=== PATIENT | male | born 1995 | race Caucasian/White ===

== ENCOUNTER 2018-05-19 01:42 | Emergency (ER) | payer MEDICAID ==
--- NOTE | 2018-05-19 01:17 | ERPHSYRPT ---
- History of Present Illness Time Seen by Provider: 05/19/18 01:10 EST Source: patient Exam Limitations: clinical condition Patient Subjective Stated Complaint: pt is alert and oriented. pt is ambulatory with a steady gait. pt states that he jumped up and grabbed onto an edge of a wall and felt a pop on May 16. pt states that it did not immediately hurt but began hurting about an hour later. pt states he has limited ROM. he is able to lift and move his arm. pedal pulses present. Triage Nursing Assessment: see above Physician History: PATIENT STATES 2 DAYS AGO HE JUMPED ONTO WALL WITH BOTH ARMS AND FELT A POPPING SENSATION AND SEVERE PAIN INTO HIS LEFT SHOULDER. HAS PERSISTENT PAIN WITH LIMITED RANGE OF MOTION OF LEFT SHOULDER. DENIES DEFORMITY, SWELLING, NUMBNESS , TINGLING IN ARM. Occurred: days ago (2) Method of Injury: twisted Quality: constant Severity of Pain-Max: moderate Severity of Pain-Current: moderate Extremities Pain Location: shoulder: left Modifying Factors: Improves With: movement Associated Symptoms: none (LIMITED RANGE OF MOTION OF ARM) Allergies/Adverse Reactions: No Known Drug Allergies Allergy (Unverified 05/19/18 01:00 EST) Hx Tetanus, Diphtheria Vaccination/Date Given: No Immunizations Up to Date: Yes - Review of Systems Constitutional: No Fever, No Chills Eyes: No Symptoms Ears, Nose, & Throat: No Symptoms Respiratory: No Cough, No Dyspnea Cardiac: No Chest Pain, No Edema, No Syncope Abdominal/Gastrointestinal: No Abdominal Pain, No Nausea, No Vomiting, No Diarrhea Genitourinary Symptoms: No Dysuria Musculoskeletal: Injury, Joint Pain, No Back Pain, No Neck Pain Skin: No Rash Neurological: No Dizziness, No Focal Weakness, No Sensory Changes Psychological: No Symptoms Endocrine: No Symptoms All Other Systems: Reviewed and Negative - Past Medical History Pertinent Past Medical History: Yes Neurological History: No Pertinent History ENT History: No Pertinent History Cardiac History: No Pertinent History Respiratory History: No Pertinent History Endocrine Medical History: No Pertinent History Musculoskeletal History: Fractures GI Medical History: No Pertinent History History: No Pertinent History Psycho-Social History: No Pertinent History Male Reproductive Disorders: No Pertinent History Other Medical History: Right wrist - Past Surgical History Past Surgical History: No - Social History Smoking Status: Never smoker Drug Use: none - Nursing Vital Signs Nursing Vital Signs: Initial Vital Signs Pulse Rate 74 05/19/18 01:51 EDT Respiratory Rate 18 05/19/18 01:51 EDT Blood Pressure 109/62 05/19/18 01:51 EDT O2 Sat by Pulse Oximetry 99 05/19/18 01:51 EDT Pain Scale Pain Intensity 7 - Physical Exam General Appearance: no apparent distress Shoulder Exam: normal inspection, no evidence of injury (LEFT RADIAL PULSE 2 +) , limited ROM, soft tissue tenderness (TENDERNESS LEFT SHOULDER ANTERIOR LATERAL ASPECT, NO SWELLING OR ECCHYMOSIS, ABDUCTION AND SHOULDER EXTENSION LIMITED TO 75 DEGREES) DTR - Upper Extremity Exam: bicep (R): 2+, bicep (L): 2+, tricep (R): 2+, tricep (L): 2+ SpO2: 99 Oxygen Delivery: Room Air - Radiology Exams Left Shoulder X-ray Interpretation: Interpreted by me, Negative, No Fracture (NO DISLOCATION) Ordered Tests: Active Orders 24 hr Category Date Time Status Sling Application STAT Care 05/19/18 01:08 Active SHOULDER Stat Exams 05/19/18 01:09 Ordered Medication Summary Discontinued Medications Generic Name Dose Route Start Last Admin Trade Name Freq PRN Reason Stop Dose Admin Ibuprofen 600 mg 05/19/18 01:08 EST Motrin 600 Mg PO 05/19/18 01:09 EST STAT ONE - Progress Progress: pain not gone completely Progress Note: 05/19/18 01:29 EST ADMINISTERED MOTRIN 600MG ORALLY, APPLICATION LEFT ARM SLING Counseled pt/family regarding: need for follow-up, rad results - Departure Time of Disposition: 13:35 Departure Disposition: Home Clinical Impression: LEFT ROTATOR CUFF TEAR Condition: Stable Critical Care Time: No Additional Instructions: WEAR ARM SLING FOR COMFORT. TORADOL 10MG EVERY 6 HOURS FOR PAIN. PERCOGESIC EVERY 4 HOURS NEEDED FOR BREAK THROUGH PAIN. CONSULT YOUR PRIMARY CARE PROVIDER FOR FOLLOWUP, PHYSICAL THERAPY AND REFERRAL TO ORTHOPEDIC SURGEON. Prescriptions: Acetaminophen/Diphenhydramine [Percogesic Extra Str Caplet] 1 each PO Q4HPRN PRN #20 tablet PRN Reason: Pain Ketorolac Tromethamine [Toradol] 10 mg PO Q6H PRN PRN #20 tablet PRN Reason: Pain
[~2018-05-19 01:42] MED LIST: MOTRIN 600 MG ONE; MOTRIN 600 MG PO ONE
[2018-05-19 01:58] VITALS: PULSE 74; O2SAT 99
[2018-05-19 04:03] VITALS: BP 110/80
--- NOTE | 2018-05-19 07:07 | XRAY ---
Indication: Pain following injury. Comparison: None 3 views of the left shoulder demonstrates mild thoracic scoliosis. No other bony, articular, or soft tissue abnormalities.
== END 2018-05-19 02:45 | disposition home or self-care (01) ==
LOC: EDBD → ED 01:42 → MERGE 01:42 → ED 02:45
DX: M75.102 Unspecified rotator cuff tear or rupture of left shoulder, not specified as traumatic (principal); X50.0XXA Overexertion from strenuous movement or load, initial encounter
CPT/HCPCS: 73030; 99283; A9270-GY

== ENCOUNTER 2018-09-14 22:05 | Emergency (ER) | payer MEDICAID ==
[2018-09-14 23:51] VITALS: BP 131/86; PULSE 98; O2SAT 98
--- NOTE | 2018-09-15 00:19 | ERPHSYRPT ---
- History of Present Illness Source: patient Exam Limitations: no limitations Patient Subjective Stated Complaint: pt is alert and oriented. pt is ambulatory with a steady gait. pt comes in after attempting to do a flip off of a 3 foot stage and landing on his face on a carpeted floor. pt has clotted off blood to bilat nares but primarily the right side. no active bleeding noted. pt denies loss of concsiousness. pt denies head injury, headache, or dizziness. pt states he feels a little lightheaded. Triage Nursing Assessment: see above Physician History: Pt is a 23 y/o male that presented to the ER with nose bleed. Pt was jumpimg off a stage doing a roll, and he miscalculated and fell with his face on the ground. He presented with nose swelling and bleed. Timing/Duration: abrupt onset Severity: moderate ENT Location: nose Prearrival Treatment: no prearrival treatment, squeezing nostrils Associated Symptoms: facial pain/swelling, epistaxis Allergies/Adverse Reactions: No Known Drug Allergies Allergy (Unverified 05/21/18 08:15) Hx Tetanus, Diphtheria Vaccination/Date Given: No Immunizations Up to Date: Yes - Review of Systems Constitutional: No Fever, No Chills Eyes: No Symptoms Ears, Nose, & Throat: Nose Pain, Epistaxis Respiratory: No Cough, No Dyspnea Cardiac: No Chest Pain, No Edema, No Syncope Abdominal/Gastrointestinal: No Abdominal Pain, No Nausea, No Vomiting, No Diarrhea Genitourinary Symptoms: No Dysuria Musculoskeletal: No Back Pain, No Neck Pain Neurological: No Dizziness, No Focal Weakness, No Sensory Changes Endocrine: No Symptoms - Past Medical History Pertinent Past Medical History: Yes Neurological History: No Pertinent History ENT History: No Pertinent History Cardiac History: No Pertinent History Respiratory History: No Pertinent History Endocrine Medical History: No Pertinent History Musculoskeletal History: Fractures GI Medical History: No Pertinent History History: No Pertinent History Psycho-Social History: No Pertinent History Male Reproductive Disorders: No Pertinent History Other Medical History: Right wrist - Past Surgical History Past Surgical History: No Other Surgical History: EGD - Social History Smoking Status: Never smoker Exposure to second hand smoke: Yes Drug Use: none - Nursing Vital Signs Nursing Vital Signs: Initial Vital Signs Temperature 97.9 F 09/14/18 22:14 Pulse Rate 87 09/14/18 22:14 Respiratory Rate 18 09/14/18 22:14 Blood Pressure 155/88 09/14/18 22:14 O2 Sat by Pulse Oximetry 100 09/14/18 22:14 Pain Scale Pain Intensity 7 - Physical Exam General Appearance: mild distress Eye Exam: bilateral eye: normal inspection, PERRL, EOMI Ear Exam: bilateral ear: auricle normal, canal normal Nasal Exam: dried blood (b/l. Swollen nose.) Throat Exam: pharynx normal, moist mucus membranes, No tonsillar exudate Neck Exam: supple Cardiovascular/Respiratory Exam: normal breath sounds, regular rate/rhythm Abdominal Exam: non-tender, soft Neurologic Exam: alert, oriented x 3, sensation nml, No motor deficits Skin Exam: normal color, warm, dry SpO2 Interpretation: normal SpO2: 98 - CT Exams Maxillofacial Bones CT Interpretation: Tele-radiologist Report (might have small fx of the R nose) Ordered Tests: Active Orders 24 hr Category Date Time Status FACIAL BONES WO CONTRAST [CT] Stat Exams 09/14/18 22:00 Taken - Progress Progress: improved Progress Note: 09/15/18 00:[address] of facial bones. The results showed small fx. Non displacement. Pt did blow his nose, and no more bleeding present. He is able to breath through his nares. Visualization of the nose show clear nares with no blood or clots. I advised the pt to use OTC pain meds, and use ice for swelling. He should f/u with his PCP next week. Will see patient in: office Counseled pt/family regarding: need for follow-up - Departure Time of Disposition: 00:19 Departure Disposition: Home Clinical Impression: Nasal bone fracture Condition: Stable Critical Care Time: No Referrals: DOCTOR,NO FAMILY [Primary Care Provider] - Additional Instructions: F/U with PCP next week. Ice the nose, and use OTC meds for pain.
--- NOTE | 2018-09-15 07:42 | XRAY ---
Indication: Facial trauma following fall. Contiguous axial images obtained through the facial bones. Sagittal and coronal reformatted images obtained. Comparison: None A few bilateral dental amalgams produces beam artifact. Tiny nondepressed right nasal bone bridge fracture with overlying soft tissue swelling. No other acute fracture, suspicious bony lesions, or radiopaque foreign body. Orbits including roof, rosa, and floors intact. Paranasal sinuses and nasal passages are clear. Moderate nasal septal deviation to the left. Remaining visualized noncontrasted soft tissues including base of the brain unremarkable. Impression: Tiny right nasal bone fracture. Comment: Preliminary interpretation was made by [facility]. No discrepancy. CTDI 59.47
== END 2018-09-15 00:35 | disposition home or self-care (01) ==
LOC: ED 22:05
DX: S02.2XXA Fracture of nasal bones, initial encounter for closed fracture (principal); W22.8XXA Striking against or struck by other objects, initial encounter; G50.1 Atypical facial pain; R04.0 Epistaxis
CPT/HCPCS: 70486; 99283

== ENCOUNTER 2024-10-08 16:59 | Emergency (ER) | payer MEDICAID, OTHER ==
[2024-10-08 17:14] VITALS: RESP 18; TEMP 98.1; O2SAT 99
--- NOTE | 2024-10-08 18:02 | ERPHSYRPT ---
- History of Present Illness Time Seen by Provider: 10/08/24 17:03 Source: patient Exam Limitations: no limitations Patient Subjective Stated Complaint: "Hard to Swallow" since last night. Denies any pain. Triage Nursing Assessment: Patient ambulated back to ER without difficulties. He is alert and oriented. No SOB. No cough. Skin tone normal. Physician History: 29-year-old healthy male presented to the ER with complaint of difficulty/hard to swallow. Patient denies any pain. Denies any choking sensation. Patient denies any vomiting. He is not able to differentiate between liquid and solids. No fever or chills reported. Denies any sore throat. No history of stricture, does have history of acid reflux and taking esomeprazole. Allergies/Adverse Reactions: No Known Drug Allergies Allergy (Verified 10/08/24 17:06) Home Medications: Esomeprazole Magnesium 40 mg PO DAILY 10/08/24 [History] Hx Tetanus, Diphtheria Vaccination/Date Given: Yes Immunizations Up to Date: Yes Travel Risk - International Travel Have you traveled outside of the country in past 3 weeks: No - Emerging Infectious Disease Are you exhibiting symptoms associated with any current EIDs: No - Review of Systems Constitutional: No Symptoms Ears, Nose, & Throat: No Throat Swelling (Redness) Respiratory: No Symptoms Cardiac: No Symptoms Abdominal/Gastrointestinal: No Symptoms Genitourinary Symptoms: No Symptoms Skin: No Symptoms Neurological: No Symptoms Hematologic/Lymphatic: No Symptoms Immunological/Allergic: No Symptoms - Past Medical History Pertinent Past Medical History: Yes Neurological History: No Pertinent History ENT History: No Pertinent History Cardiac History: No Pertinent History Respiratory History: No Pertinent History Endocrine Medical History: No Pertinent History Musculoskeletal History: Fractures GI Medical History: GERD History: No Pertinent History Psycho-Social History: No Pertinent History Male Reproductive Disorders: No Pertinent History - Past Surgical History Past Surgical History: No Other Surgical History: EGD - Social History Smoking Status: Never smoker Exposure to second hand smoke: No Drug Use: none - Social Determinants of Health Will the patient participate in the screening: Declined to provide - Nursing Vital Signs Nursing Vital Signs: Initial Vital Signs Pulse Rate 76 10/08/24 17:04 Respiratory Rate 18 10/08/24 17:04 Blood Pressure 150/99 10/08/24 17:04 O2 Sat by Pulse Oximetry 99 10/08/24 17:04 Pain Scale Pain Intensity 0 - Physical Exam General Appearance: no apparent distress Eye Exam: PERRL/EOMI Ears, Nose, Throat Exam: moist mucous membranes, pharyngeal erythema Neck Exam: normal inspection, non-tender, supple, full range of motion Respiratory Exam: normal breath sounds, lungs clear Cardiovascular Exam: regular rate/rhythm, normal heart sounds Gastrointestinal/Abdomen Exam: soft Extremity Exam: normal inspection, normal range of motion Neurologic Exam: alert, oriented x 3, cooperative, theatrical variety agent II-XII nml as tested SpO2: 99 Lab/Rad Data: Laboratory Results 10/08/24 Range/Units 17:52 Group A Strep Antibody NOT DETECTED (NEGATIVE) - Progress Progress: unchanged Progress Note: 10/08/24 18:00 Mild pharyngeal erythema. No difficulty breathing, able to swallow without any restriction.no neck swelling or enlarged nodes. Plan on discharge if has negative strep. Recommended outpatient follow-up for EGD for further evaluation to rule out strictures. Counseled pt/family regarding: diagnosis, need for follow-up Medical Desision Making - Diagnostic Testing Diagnostic test were ordered, analyzed, and reviewed by me: Yes - Departure Departure Disposition: Home Clinical Impression: Dysphagia Condition: Stable Critical Care Time: No Referrals: SHAHRAM VÁSQUEZ MD [Primary Care Provider] - Follow up with PCP 1 day CRISTINA MCLAIN [ACTIVE STAFF] - Follow up/PCP as directed (Call tomorrow for appointment for reevaluation and EGD) Instructions: Dysphagia in adults - Discharge instructions Additional Instructions: Take soft pured diet. Follow-up with primary care and GI/general surgery for reevaluation and possible endoscopy. Return to ER if having choking sensation, regurgitation, vomiting etc.
[2024-10-08 18:37] VITALS: BP 113/85; PULSE 80
== END 2024-10-08 18:36 | disposition home or self-care (01) ==
LOC: ED 16:59
DX: R13.10 Dysphagia, unspecified (principal); Z79.899 Other long term (current) drug therapy
CPT/HCPCS: 87651; 99282; 99283